=== PATIENT | male | born 1990 | race Hispanic/Latino ===

== ENCOUNTER 2017-02-12 00:10 | Emergency (ER) | payer SELFPAY ==
[2017-02-12 00:20] VITALS: O2SAT 99
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
[2017-02-12 01:13] VITALS: BP 129/79; PULSE 78; RESP 16; TEMP 98
--- NOTE | 2017-02-12 08:42 | RAD ---
PROCEDURE: Right Hand Radiographs. HISTORY: trauma, pain and swelling COMPARISON: None. FINDINGS: BONES: Normal. No fracture. JOINTS: Normal. No osteoarthritic changes. SOFT TISSUES: Normal. OTHER FINDINGS: None. IMPRESSION: Normal right hand radiographs.
== END 2017-02-12 01:10 | disposition home or self-care (01) ==
LOC: C.ER 00:10
DX: S60.221A Contusion of right hand, initial encounter (principal); Y04.0XXA Assault by unarmed brawl or fight, initial encounter

== ENCOUNTER 2017-08-19 22:11 | Emergency (ER) | payer OTHER ==
[2017-08-19 22:49] VITALS: BP 135/82; PULSE 97; RESP 20; TEMP 98.3; O2SAT 97
[2017-08-20] MEDS ORDERED: Fluorescein 1 mg Ophthalmic Strip ONE (00:14)
[2017-08-20] MEDS ORDERED: Tetracaine 0.5% Ophth (OR ONLY) ONE (00:14)
[2017-08-20] MEDS ORDERED: Tobramycin 0.3% OPH OINT OD STA (00:52)
[2017-08-20] MEDS ORDERED: Tobramycin 0.3% OPH OINT ONE (00:54)
--- NOTE | 2017-08-20 00:56 | C.PDOC ---
History Of Present Illness 27 year old male presents to the ED c/o foreign body sensation in his right eye that occurred after he was cleaning at home. Patient states he felt something fly in his right eye. Pt reports he flushed his eye multiple times but still feel a foreign body inside, eye is teary and red. Patient denies blurry vision, trauma, injury, fall, headache, nausea. Time Seen by Provider: 08/19/17 23:18 Chief Complaint (Nursing): Eye Problem History Per: Patient History/Exam Limitations: no limitations Onset/Duration Of Symptoms: Hrs Current Symptoms Are (Timing): Still Present Injury To Eye?: No Quality: Other Wears Contact Lens?: No Associated Symptoms: FB Sensation Recent travel outside of the [place]: No Additional History Per: Patient Past Medical History Reviewed: Historical Data, Nursing Documentation, Vital Signs Vital Signs: Last Vital Signs Temp 98.3 F 08/19/17 22:45 Pulse 97 H 08/19/17 22:45 Resp 20 08/20/17 01:03 BP 135/82 08/19/17 22:45 Pulse Ox 97 08/20/17 02:21 - Medical History PMH: No Chronic Diseases Surgical History: No Surg Hx Family History: States: Unknown Family Hx - Social History Hx Alcohol Use: Yes Hx Substance Use: No - Immunization History Hx Tetanus Toxoid Vaccination: No Hx Influenza Vaccination: No Hx Pneumococcal Vaccination: No Review Of Systems Constitutional: Negative for: Fever Eyes: Positive for: Pain, Redness Neurological: Negative for: Headache Physical Exam - Physical Exam Appears: Non-toxic, No Acute Distress Skin: Normal Color, Warm, Dry Head: Atraumatic, Normacephalic Eye(s): right: Other (ciliary injection, No FB, corneal abrasion at 11 o'clock area), left: Normal Inspection, PERRL, EOMI Ear(s): Bilateral: Normal Nose: No Discharge Oral Mucosa: Moist Throat: Normal Neck: Normal ROM, Supple Extremity: Normal ROM Neurological/Psych: Oriented x3 Gait: Steady ED Course And Treatment O2 Sat by Pulse Oximetry: 97 (On RA) Pulse Ox Interpretation: Normal Progress Note: Plan: - Motrin 600 mg PO. - Tobrex 1 césar OD. Visual accuity was 20/25 on B/L eyes. Patient is resting comfortably, and is in no acute distress. Patient was instructed to follow up with PMD abd Opthalmologist in 1- 2 days for further evaluation. Disposition Counseled Patient/Family Regarding: Diagnosis, Need For Followup, Rx Given - Disposition Referrals: Kong Pillai MD [Staff Provider] - Disposition: HOME/ ROUTINE Disposition Time: 00:55 Condition: STABLE Additional Instructions: Flush eye with saline Continue TOBREX EYE OINT 2X DAILY Follow up with Eye doctor as needed Return to ER if worse Instructions: Corneal Abrasion (DC) Forms: [employer] (Togolese) - Clinical Impression Clinical Impression: Corneal abrasion - PA / [employer]EIGN EXCHANGE [employer]ER / Resident Statement MD/DO has reviewed & agrees with the documentation as recorded. - Scribe Statement The provider has reviewed the documentation as recorded by the Scribe Robin Acevedo All medical record entries made by the Scribe were at my direction and personally dictated by me. I have reviewed the chart and agree that the record accurately reflects my personal performance of the history, physical exam, medical decision making, and the department course for this patient. I have also personally directed, reviewed, and agree with the discharge instructions and disposition.
== END 2017-08-20 01:03 | disposition home or self-care (01) ==
LOC: C.ER 22:11
DX: S05.01XA Injury of conjunctiva and corneal abrasion without foreign body, right eye, initial encounter (principal); X58.XXXA Exposure to other specified factors, initial encounter; Y93.E9 Activity, other interior property and clothing maintenance; Y92.009 Unspecified place in unspecified non-institutional (private) residence as the place of occurrence of the external cause